=== PATIENT | male | born 2000 | race Caucasian/White ===

== ENCOUNTER 2020-03-05 22:02 | Emergency (ER) | payer MEDICAID ==
[~2020-03-05] VITALS: Ht 157.5 cm; Wt 74.8 kg
--- NOTE | 2020-03-05 22:05 | NUR ---
PT CAME TO THE ED C/O BACK PAIN AND PAINFUL URINATION. PT AAOX4, VSS, RESPIRATIONS EVEN AND UNLABORED ON RA W/ NAD NOTED. PT CONNECTED TO THE MONITOR AND POX
[2020-03-05 22:53] LABS: APPEARANCE,URINE Clear (CLEAR); BILIRUBIN,URINE Negative (NEGATIVE); BLOOD, URINE Small Ery/uL (NEGATIVE); COLOR,URINE Yellow (YELLOW); KETONES,URINE Negative (NEGATIVE); LEUKOCYTE ESTERASE ,URINE Trace (NEGATIVE); NITRITE, URINE Negative (NEGATIVE); PH,URINE 8.5 (5.0-8.0); PROTEIN,URINE 30 mg/dl (NEGATIVE); UGLUCOSE Negative (NEGATIVE); UROBILINOGEN,URINE 0.2 EU/dL (0.2)
[2020-03-05 22:58] LABS: BACTERIA,URINE Few /HPF (None Seen); SQUAMOUS EPITHELIAL CELL,UR Few /HPF (None Seen)
[2020-03-05] MEDS ORDERED: MORPHINE SULFATE INJ 4 MG/ML DISP.SYRIN ONE (23:39)
[2020-03-05] MEDS ORDERED: ONDANSETRON HCL/PF 4 MG/2 ML VIAL ONE (23:39)
[2020-03-05] MEDS: MORPHINE SULFATE INJ 2 MG/ML DISP.SYRIN IV ONE (23:46)
[2020-03-05] MEDS: IV NS 0.9% 1,000 ML BAG IV ONE (23:46)
[2020-03-05 23:47] LABS: BASOPHILS # (AUTO) 0.1 /CMM (0.0-0.2); BASOPHILS % (AUTO) 0.6 % (0.0-2.0); EOSINOPHILS % (AUTO) 1.5 % (0.0-6.0); HEMATOCRIT 42 % (39-51); HEMOGLOBIN 14.1 g/dL (13.5-17.5); LYMPHOCYTES % (AUTO) 20.4 % (20.0-44.0); MEAN CORPUSCULAR HGB CONC 34 g/dl (31.0-36.0); MEAN CORPUSCULAR VOLUME 87 fL (80-96); MONOCYTES # (AUTO) 0.9 /CMM (0.1-1.30); NEUTROPHILS # (AUTO) 6.6 /CMM (1.8-8.9); NEUTROPHILS % (AUTO) 68.5 % (43.0-81.0); PLATELET COUNT (AUTO) 218 /CMM (150-450); RED BLOOD CELL COUNT(AUTO) 4.77 MIL/uL (4.5-6.0); WHITE BLOOD COUNT (AUTO) 9.6 K/uL (4.3-11.0)
[2020-03-05] MEDS: ONDANSETRON HCL/PF 4 MG/2 ML VIAL IVP ONE (23:47)
--- NOTE | 2020-03-05 23:49 | NUR ---
PT TAKEN TO CT
[2020-03-06] LABS: CALCIUM, SERUM 8.9 mg/dL (8.5-10.1); CREATININE 1.1 mg/dL (0.6-1.3); POTASSIUM 3.7 mmol/L (3.5-5.1)
--- NOTE | 2020-03-06 | NUR ---
PT BACK FROM CT
[2020-03-06 00:06] LABS: ALBUMIN 4.3 g/dL (3.4-5.0); BILIRUBIN,DIRECT 0.1 mg/dL (0.0-0.2); BILIRUBIN,TOTAL 0.5 mg/dL (0.2-1.0); TOTAL PROTEIN, SERUM 7.5 g/dL (6.4-8.2)
--- NOTE | 2020-03-06 00:44 | NUR ---
Patient discharged to home in stable condition. Written and verbal after care instructions given. Patient verbalizes understanding of instruction.IV removed. Catheter intact and site benign. Pressure and 4x4 applied to site. No bleeding noted.
[2020-03-06 00:46] VITALS: BP 127/84
== END 2020-03-06 00:47 | disposition home or self-care (01) ==
LOC: ER 22:02
DX: N39.0 Urinary tract infection, site not specified (principal); K59.00 Constipation, unspecified
CPT/HCPCS: 36415; 74176; 80048; 80076; 81001; 83690; 85025; 85730; 96374; 96375; 99284; J2270; J2405; J7030; 81000-TC

== ENCOUNTER 2020-03-07 03:29 | Emergency (ER) | payer MEDICAID, OTHER ==
[~2020-03-07] VITALS: Ht 157.5 cm; Wt 74.8 kg
[2020-03-07 03:53] VITALS: BP 122/83
[2020-03-07] MEDS ORDERED: KETOROLAC TROMETHAMINE INJ 60 MG/2 ML VIAL IM ONE ×2 (04:17→04:30)
--- NOTE | 2020-03-07 05:00 | NUR ---
US AT BEDSIDE
--- NOTE | 2020-03-07 05:36 | NUR ---
Patient discharged to home in stable condition. Written and verbal after care instructions given. Patient verbalizes understanding of instruction. pt. ambulatory with a steady gait
== END 2020-03-07 05:36 | disposition home or self-care (01) ==
LOC: ER 03:31
DX: Q53.112 Unilateral inguinal testis (principal); R59.9 Enlarged lymph nodes, unspecified
CPT/HCPCS: 76870; 96372; 99284; J1885

== ENCOUNTER 2020-11-24 08:51 | Emergency (ER) | payer OTHER ==
[~2020-11-24] VITALS: Ht 157.5 cm; Wt 68.0 kg
[2020-11-24 09:00] VITALS: BP 120/57
[2020-11-24] MEDS ORDERED: FLUORESCEIN SODIUM OPHTH 1 EA STRIP ONE (09:06)
[2020-11-24] MEDS ORDERED: SULF5DRO RIGHTEYE (09:35)
== END 2020-11-24 09:48 | disposition home or self-care (01) ==
LOC: ER 08:55
DX: T15.01XA Foreign body in cornea, right eye, initial encounter (principal); W45.8XXA Other foreign body or object entering through skin, initial encounter; Y93.89 Activity, other specified; Y92.89 Other specified places as the place of occurrence of the external cause; Y99.8 Other external cause status

== ENCOUNTER 2022-03-22 15:02 | Emergency (ER) | payer OTHER ==
[~2022-03-22] VITALS: Ht 162.6 cm; Wt 79.4 kg
[~2022-03-22 15:02] MED LIST: SULF5DRO RIGHTEYE
--- NOTE | 2022-03-22 15:35 | NUR ---
BIBS W/ C/O DIFFUSE ABDOMINAL PAIN SINCE YESTERDAY, DENIES N/V/D. PT IS A/O X4, AMBULATORY. TO ER BED 12.
[2022-03-22] MEDS ORDERED: MAG HYDROX/AL HYDROX/SIMETH 30 ML UDC PO ONE (16:00)
[2022-03-22] MEDS ORDERED: KETOROLAC TROMETHAMINE INJ 30 MG/ML VIAL IV ONE (16:00)
[2022-03-22] MEDS ORDERED: IV NS 0.9% 1,000 ML BAG IV ONE (16:00)
[2022-03-22] MEDS ORDERED: FAMOTIDINE/PF INJ 20 MG/2 ML VIAL IV ONE ×2 (16:00→16:02)
[2022-03-22] MEDS ORDERED: ONDANSETRON HCL/PF 4 MG/2 ML VIAL IVP ONE (16:00)
--- NOTE | 2022-03-22 16:01 | NUR ---
IV LINE IS ESTABLISHED, BLOOD SPECIMEN COLLECTED AND SENT TO THE LAB. THE LINE IS SALINE LOCKED.
[2022-03-22] MEDS ORDERED: KETOROLAC TROMETHAMINE 15 MG/ML VIAL ONE (16:02)
[2022-03-22] MEDS ORDERED: MAG HYDROX/AL HYDROX/SIMETH 30 ML UDC ONE (16:02)
[2022-03-22] MEDS ORDERED: ONDANSETRON HCL/PF 4 MG/2 ML VIAL ONE (16:02)
[2022-03-22 16:12] LABS: BASOPHILS % (AUTO) 0.3 % (0.0-2.0); EOSINOPHILS % (AUTO) 5.2 % (0.0-6.0); HEMATOCRIT 42 % (39-51); HEMOGLOBIN 14.2 g/dL (13.5-17.5); LYMPHOCYTES # (AUTO) 1.4 K/uL (0.8-4.8); MEAN CORPUSCULAR HGB CONC 34 g/dl (31.0-36.0); MEAN CORPUSCULAR VOLUME 84 fL (80-96); MONOCYTES # (AUTO) 0.8 K/uL (0.1-1.30); NEUTROPHILS # (AUTO) 3.4 K/uL (1.8-8.9); NEUTROPHILS % (AUTO) 57.5 % (43.0-81.0); PLATELET COUNT (AUTO) 239 K/uL (150-450); RED BLOOD CELL COUNT(AUTO) 5.01 MIL/uL (4.5-6.0); WHITE BLOOD COUNT (AUTO) 5.9 K/uL (4.3-11.0)
[2022-03-22 17:01] LABS: ALBUMIN 4.3 g/dL (3.4-5.0); BILIRUBIN,DIRECT 0.1 mg/dL (0.0-0.2); BILIRUBIN,TOTAL 0.5 mg/dL (0.2-1.0); POTASSIUM 3.5 mmol/L (3.5-5.1); TOTAL PROTEIN, SERUM 7.5 g/dL (6.4-8.2)
[2022-03-22 17:19] LABS: CALCIUM, SERUM 8.3 mg/dL (8.5-10.1)
[2022-03-22 18:04] LABS: BILIRUBIN,URINE NEGATIVE (NEGATIVE); COLOR,URINE YELLOW (YELLOW); LEUKOCYTE ESTERASE ,URINE NEGATIVE (NEGATIVE); NITRITE, URINE NEGATIVE (NEGATIVE); PROTEIN,URINE NEGATIVE (NEGATIVE); UGLUCOSE NEGATIVE (NEGATIVE); UROBILINOGEN,URINE 0.2 EU/dL (0.2)
[2022-03-22] MEDS ORDERED: ONDA4TAB5 PO (18:27)
[2022-03-22] MEDS ORDERED: FAMO-131 PO (18:27)
--- NOTE | 2022-03-22 18:46 | NUR ---
IV removed. Catheter intact and site benign. Pressure and 4x4 applied to site. No bleeding noted.
--- NOTE | 2022-03-22 18:46 | NUR ---
Patient discharged to home in stable condition. Written and verbal after care instructions given. Patient verbalizes understanding of instruction.
[2022-03-22 18:48] VITALS: BP 133/77
== END 2022-03-22 18:48 | disposition home or self-care (01) ==
LOC: ER 15:07
DX: K21.9 Gastro-esophageal reflux disease without esophagitis (principal); R10.13 Epigastric pain; R11.0 Nausea; K83.9 Disease of biliary tract, unspecified
CPT/HCPCS: 99284; 96374; 76705; 96375; 96361; 85025; 80048; 83690; 80076; 81003; 36415; J3490; J2405; J7030; J1885

== ENCOUNTER 2022-06-12 19:37 | Emergency (ER) | payer OTHER ==
[~2022-06-12] VITALS: Ht 165.1 cm; Wt 68.0 kg
[~2022-06-12 19:37] MED LIST changes: +FAMO-131 PO; +ONDA4TAB5 PO
--- NOTE | 2022-06-12 20:24 | NUR ---
BIBSELF FROM WORK C/O FOREIGN BODY IN RIGHT EYE, WHILE PLUMMING. PT A/OX4. TOLERATING R/A AT 98% WITH NO RESP DISTRESS. AMBULATORY WITH STEADY GAIT. SAFETY MEASURES IN PLACE.
[2022-06-12] MEDS ORDERED: FLUORESCEIN SODIUM OPHTH 1 EA STRIP ONE (21:15)
[2022-06-12] MEDS ORDERED: TETRACAINE HCL 0.5% OPHTALMIC 15 ML BOTTLE OP ONE (21:30)
[2022-06-12] MEDS ORDERED: FLUORESCEIN SODIUM OPHTH 1 EA STRIP OP ONE (21:30)
[2022-06-12] MEDS ORDERED: CIPR2.5D14 RIGHTEYE (21:46)
--- NOTE | 2022-06-12 22:01 | NUR ---
Patient discharged to home in stable condition. Written and verbal after care instructions given. Patient verbalizes understanding of instruction. PT ambulatory with a steady gait
[2022-06-13 00:17] VITALS: BP 134/72
== END 2022-06-12 22:01 | disposition home or self-care (01) ==
LOC: ER 19:40
DX: T15.01XA Foreign body in cornea, right eye, initial encounter (principal); Z79.899 Other long term (current) drug therapy; X58.XXXA Exposure to other specified factors, initial encounter; Y93.89 Activity, other specified; Y92.89 Other specified places as the place of occurrence of the external cause; Y99.8 Other external cause status

== ENCOUNTER 2023-07-17 18:08 | Emergency (ER) | payer OTHER ==
[~2023-07-17] VITALS: Ht 167.6 cm; Wt 77.1 kg
[~2023-07-17 18:08] MED LIST changes: +CIPR2.5D14 RIGHTEYE
[2023-07-17 18:22] VITALS: BP 111/65; TEMP 97.8
[2023-07-17] MEDS ORDERED: TETRACAINE HCL 0.5% OPHTALMIC 15 ML BOTTLE OP ONE (18:30)
[2023-07-17] MEDS ORDERED: FLUORESCEIN SODIUM OPHTH 1 EA STRIP OP ONE (18:30)
[2023-07-17] MEDS ORDERED: FLUORESCEIN SODIUM OPHTH 1 EA STRIP ONE (18:52)
[2023-07-17] MEDS ORDERED: SULF5DRO LEFTEYE (19:09)
[2023-07-17 19:10] VITALS: O2SAT 97
== END 2023-07-17 20:16 | disposition home or self-care (01) ==
LOC: ER 18:10
DX: T15.02XA Foreign body in cornea, left eye, initial encounter (principal)